=== PATIENT | female | born 1960 | race Caucasian/White ===

== ENCOUNTER 2019-01-14 14:09 | Outpatient (CLI) | payer MEDICARE, MEDICAID | END 2019-01-14 14:10 | disposition home or self-care (01) | LOC: CTENTCT 14:09 | PROVIDERS: ATTEND Otolaryngology Plastic Surgery within the Head & Neck | DX: J32.9 Chronic sinusitis, unspecified (principal) | CPT/HCPCS: 70486 ==

== ENCOUNTER 2019-01-29 10:08 | Day surgery (SDC) | payer MEDICARE, MEDICAID ==
[2019-01-28 11:19] VITALS: BMI 23.0
[2019-01-29] MEDS ORDERED: Oxymetazoline HCl 0.05% ( 15 ML ) ONE ×2 (10:35→13:03)
[2019-01-29] MEDS ORDERED: Lidocaine 1% w/Epinephrine 1:100K 20 ML VIAL ONE (13:03)
[2019-01-29] MEDS ORDERED: Fentanyl 100 MCG/2 ML VIAL ONE ×2 (13:12→13:42)
[2019-01-29] MEDS ORDERED: Midazolam HCl 2 mg/2 ml Vial ONE (13:12)
[2019-01-29] MEDS ORDERED: Meperidine HCl/PF 25 MG/ML VIAL ONE (13:42)
[2019-01-29] MEDS ORDERED: HYDROcodone/Acetaminophen 5/325 mg Tablet ONE (15:00)
[2019-01-29] MEDS ORDERED: Dexamethasone 20 MG/5 ML VIAL ONE (16:39)
[2019-01-29] MEDS ORDERED: PROPOFOL 200 MG/20 ML VIAL ONE (16:39)
[2019-01-29] MEDS ORDERED: Ondansetron PF 4 MG/2 ML Vial ONE (16:39)
[2019-01-29] MEDS ORDERED: Rocuronium Bromide 10 MG/ML (10ML VIAL) ONE (16:39)
--- NOTE | 2019-01-30 12:35 | OP ---
DATE OF PROCEDURE: 01/29/2019 PREOPERATIVE DIAGNOSES: 1. Chronic rhinosinusitis. 2. Ethmoidal sinus mass. 3. Bilateral inferior turbinate hypertrophy. 4. Nasal obstruction. POSTOPERATIVE DIAGNOSES: 1. Chronic rhinosinusitis. 2. Ethmoidal sinus mass. 3. Bilateral inferior turbinate hypertrophy. 4. Nasal obstruction. PROCEDURE PERFORMED: 1. Bilateral endoscopic sinus surgery, total ethmoidectomies. 2. Bilateral endoscopic sinus surgery, maxillary antrostomies. 3. Bilateral endoscopic sinus surgery, frontal sinusotomies. 4. Bilateral inferior turbinate submucosal resection. 5. [employer] image-guided cranial base navigational surgery. ESTIMATED BLOOD LOSS: 20 mL. COMPLICATIONS: None. ANESTHESIA: GETA. DESCRIPTION OF PROCEDURE: The patient was taken to the operating room and placed supine on the table. General endotracheal anesthesia was obtained by the anesthesia staff. The tube was secured in the left lower lip. The patient was placed in a beach-chair position, and Afrin pledgets were placed in the nasal cavity. Following this, the patient was prepped and draped in standard surgical fashion, and the [employer] image-guided system was set up, calibrated, was noted to be within 1 mm . Following this, the Afrin pledgets removed from nasal cavity. 1% lidocaine with 1:100,000 epinephrine was injected into the inferior turbinates, middle turbinates, and lateral nasal wall bilaterally. Following this, the 0-degree endoscope was advanced in the middle meatus. The middle turbinates were identified and were medially fractured with a Liebenthal elevator, exposing the uncinate process. Following this, the uncinate process was removed using the image-guided microdebrider bilaterally. Following this, the natural maxillary using the image-guided device and was widened using the curved microdebrider and straight Blakesley forceps bilaterally. Following this, the ethmoidal bulla was identified and was punctured on its medial and inferior aspects bilaterally. Using the 0-degree microdebrider and the up-biting Blakesley forceps, the ethmoidal bulla was removed. Following this, the grand lamella was identified and was punctured into the posterior ethmoidal cells bilaterally, and working from posterior to anterior, the ethmoidal cells were removed. On the right ethmoidal sinus, there was an isolated mass, which had a small amount of yellow purulence immediately adjacent to the lamina papyracea. The cell was opened and irrigated with normal saline. Following this, 45-degree endoscope and the 40-degree microdebrider blade with image-guided system was then used to further open the frontal sinus ostia bilaterally. Following this, nasal cavity was irrigated. Mirapex was placed within the middle meatus. The inferior turbinates were then punctured with the submucosal microdebrider and submucosal resection was performed of the anterior and inferior portions of the inferior turbinates bilaterally. The patient tolerated the procedure well. Job ID: [id number]
--- NOTE | 2019-02-05 14:13 | EKG ---
Test Reason : PREOP Blood Pressure : / mmHG Vent. Rate : 059 BPM Atrial Rate : 059 BPM P-R Int : 158 ms QRS Dur : 096 ms QT Int : 450 ms P-R-T Axes : 028 088 070 degrees QTc Int : 445 ms Sinus bradycardia with marked sinus arrhythmia Otherwise normal ECG No previous ECGs available Confirmed by ILEANA JEREZ ([id number]) on 02/05/2019 2:13:11 PM Referred By: TAMMI Confirmed By:ILEANA JEREZ
== END 2019-01-29 15:37 | disposition home or self-care (01) ==
LOC: SDC 10:08
PROVIDERS: ATTEND Otolaryngology Plastic Surgery within the Head & Neck
PROC: 09TV8ZZ Resection of Left Ethmoid Sinus, Via Natural or Artificial Opening Endoscopic (ICD-10-PCS; principal; 2019-01-29)
PROC: 09TU8ZZ Resection of Right Ethmoid Sinus, Via Natural or Artificial Opening Endoscopic (ICD-10-PCS; 2019-01-29)
PROC: 09BL8ZZ Excision of Nasal Turbinate, Via Natural or Artificial Opening Endoscopic (ICD-10-PCS; 2019-01-29)
DX: J32.2 Chronic ethmoidal sinusitis (principal); J34.3 Hypertrophy of nasal turbinates; J34.89 Other specified disorders of nose and nasal sinuses; F41.9 Anxiety disorder, unspecified; F32.9 Major depressive disorder, single episode, unspecified; M19.90 Unspecified osteoarthritis, unspecified site
CPT/HCPCS: 36415; 85014; 93005; 93010; J1100; J2001; J2175; J2250; J2405; J2704; J3010